=== PATIENT | male | born 1955 | race Caucasian/White ===

== ENCOUNTER 2019-07-29 12:35 | Emergency (ER) | payer OTHER ==
[~2019-07-29] VITALS: Ht 182.9 cm; Wt 63.0 kg
[2019-07-29 15:30] VITALS: BP 145/80
[2019-07-29] MEDS ORDERED: BACITRACIN TOP OINT 1 UD PKG TOP ONE (17:10)
== END 2019-07-29 17:34 | disposition home or self-care (01) ==
LOC: ER 12:35
DX: S00.81XA Abrasion of other part of head, initial encounter (principal); H57.89 Other specified disorders of eye and adnexa; F17.210 Nicotine dependence, cigarettes, uncomplicated; Z98.890 Other specified postprocedural states; W01.198A Fall on same level from slipping, tripping and stumbling with subsequent striking against other object, initial encounter; Y93.89 Activity, other specified; Y92.89 Other specified places as the place of occurrence of the external cause; Y99.8 Other external cause status
CPT/HCPCS: 70450